=== PATIENT | male | born 1970 | race Caucasian/White ===

== ENCOUNTER 2017-09-27 07:36 | Outpatient (CLI) | payer OTHER ==
--- NOTE | 2017-09-27 10:39 | MRI ---
MRI RIGHT SHOULDER WITHOUT CONTRAST: Date: 09/27/17 HISTORY: Shoulder pain. Rotator cuff tear. [id number]. COMPARISON: None. FINDINGS: Biceps Tendon: Extraarticular biceps tendon is normal. Intraarticular biceps tendon is also normal. Labrum: Intact. Rotator Cuff: There is mild tendinosis of the supraspinatus and infraspinatus tendons. No full thickness perforatio n. Mild bursal surface and undersurface fraying. Bones: There is mild edema in the distal acromion, as well as of the distal clavicle, with erosive changes. There is also edema within the superior and inferior acromioclavicular ligaments. Minimal subacromial/subdeltoid bursal effusion. Muscles: The muscle signal and bulk is normal. IMPRESSION: 1. Intact rotator cuff with minimal articular and bursal surface fraying. 2. Intact labrum and biceps tendon. 3. Advanced degenerative disease acromioclavicular joint with marked synovitis, as well as thickenin g of the superior and inferior acromioclavicular ligaments. This may be source of patient's pain and may benefit from a joint injection. POS: [facility]
== END 2017-09-27 07:37 | disposition home or self-care (01) ==
LOC: TBSIIMAG 07:36
PROVIDERS: ATTEND Orthopaedic Surgery
DX: M75.101 Unspecified rotator cuff tear or rupture of right shoulder, not specified as traumatic (principal); M19.011 Primary osteoarthritis, right shoulder